=== PATIENT | male | born 1940 | race Two or more races ===

== ENCOUNTER 2017-12-12 08:09 | Emergency (ER) | payer MEDICAID ==
[~2017-12-12] VITALS: Ht 182.9 cm; Wt 91.0 kg
[~2017-12-12 08:09] MED LIST: ACHECK TEST; AMPI250C13 GT; ATOR10TA PO; Aspirin PO; CLOP75TA16 PO; COR3 PO; GABA-531 PO; INSNOV SUBCUT; INSU100I19 SQ; NITR12SP6 TL; SUCR1ORA2 PO; ambien PO
[2017-12-12 11:23] VITALS: BP 129/72
== END 2017-12-12 11:26 | disposition home or self-care (01) ==
LOC: ER 08:55
DX: L97.511 Non-pressure chronic ulcer of other part of right foot limited to breakdown of skin (principal); E11.9 Type 2 diabetes mellitus without complications; I10 Essential (primary) hypertension; I25.10 Atherosclerotic heart disease of native coronary artery without angina pectoris
CPT/HCPCS: 99283

== ENCOUNTER 2019-01-02 13:06 | Inpatient (IN) | payer MEDICAID ==
[~2019-01-02] VITALS: Ht 180.3 cm; Wt 96.2 kg
[~2019-01-02 13:06] MED LIST changes: +AM250 GT; -AMPI250C13 GT; -CLOP75TA16 PO; +CLOP75TA4 PO
[2019-01-02] MEDS ORDERED: METHYLPREDNISOLONE SOD SUCC 125 MG/2 ML VIAL IV STA (13:47)
[2019-01-02] MEDS ORDERED: IPRATROPIUM BROMIDE (0.02%) 0.5MG/2.5ML NEB HHN STA (13:47)
[2019-01-02] MEDS ORDERED: ALBUTEROL (0.083%) 2.5MG/3ML NEB HHN STA (13:47)
[2019-01-02] MEDS ORDERED: ASPIRIN 81MG TABLET PO ONE (14:00)
[2019-01-02] MEDS ORDERED: NITROGLYCERIN 0.4MG TABLET SL SL PRN (14:00)
[2019-01-02 14:38] LABS: BASOPHILS % 1.5 % (0.0-2.0); EOSINOPHILS % 2.8 % (0.0-5.0); HEMATOCRIT. 35.2 % (42.0-52.0); HEMOGLOBIN. 10.6 g/dL (14.0-18.0); LYMPHOCYTES % 33.2 % (20.0-50.0); MEAN CORPUSCULAR HEMOGLOBIN 18.3 pg (28.0-32.0); MEAN CORPUSCULAR VOLUME 60.9 fL (80.0-94.0); MONOCYTES % 6.2 % (2.0-8.0); NEUTROPHILS % 56.3 % (40.0-76.0); RED BLOOD CELL COUNT 5.79 mill/uL (4.7-6.1); RED CELL DISTRIBUTION WIDTH 17.6 % (11.6-14.6)
[2019-01-02 14:45] LABS: CHLORIDE 112 mEq/L (98-107)
[2019-01-02 14:50] LABS: D-DIMER 1.78 mg/L FEU (<0.50); PARTIAL THROMBOPLASTIN TIME 26.4 sec (23.4-31.0); PROTHROMBIN TIME 10.1 sec (9.6-11.0)
[2019-01-02] MEDS ORDERED: SODIUM POLYSTYRENE SULFONATE 15 G/60 ML BOT PO ONE (15:15)
[2019-01-02] MEDS ORDERED: FUROSEMIDE 40MG/4ML VIAL IV ONE (15:15)
[2019-01-02] MEDS ORDERED: SODIUM BICARBONATE 8.4% 1 MEQ/ML 50ML SYR IV ONE (15:15)
[2019-01-02 15:29] LABS: PLATELET ESTIMATE SLIGHTLY DECREASED
[2019-01-02 15:33] LABS: PLATELET 124 x1000/uL (130-400)
[2019-01-02] MEDS ORDERED: ZOLPIDEM TARTRATE 5MG TABLET PO PRN (18:15)
[2019-01-02] MEDS ORDERED: ACETAMINOPHEN 325MG TABLET PO PRN (18:15)
[2019-01-02] MEDS ORDERED: ONDANSETRON HCL 4MG/2ML INJ IV PRN (18:15)
[2019-01-02] MEDS ORDERED: DEXTROSE 50% WATER 50ML SYRINGE IV PRN (18:15)
[2019-01-02 18:50] LABS: LDL CHOLESTEROL 86 mg/dL (5-100)
[2019-01-02 18:52] LABS: HDL CHOLESTEROL 71 mg/dL (40-59)
[2019-01-02 22:00] VITALS: BP_SYST 125; BP_DIAS 125; BP_DIAS 83
[2019-01-02] MEDS ORDERED: ENOXAPARIN 100MG/ML SYR SUBCUT NR (22:48)
[2019-01-02] MEDS: BLOOD SUGAR DIAGNOSTIC STRIP TEST SCH (23:07)
[2019-01-02] MEDS: AMLODIPINE 5MG TABLET PO SCH (23:15)
[2019-01-02] MEDS: INSULIN LISPRO 100 UNITS/ML SUBCUT SCH (23:18)
[2019-01-02] MEDS: INSULIN GLARGINE UD 100 UNITS/ML SYR SUBCUT SCH (23:18)
[2019-01-03] VITALS (10 sets, daily range): BP systolic 124–163; BP diastolic 67–113
[2019-01-03] MEDS: BLOOD SUGAR DIAGNOSTIC STRIP TEST SCH ×4 (05:59→21:07)
[2019-01-03] MEDS: INSULIN LISPRO 100 UNITS/ML SUBCUT SCH ×4 (06:09→21:12)
[2019-01-03 07:21] LABS: PROTHROMBIN TIME 10.7 sec (9.6-11.0)
[2019-01-03 08:30] LABS: BASOPHILS % 0.5 % (0.0-2.0); HEMATOCRIT. 30.5 % (42.0-52.0); HEMOGLOBIN. 9.5 g/dL (14.0-18.0); LYMPHOCYTES % 8.1 % (20.0-50.0); MEAN CORPUSCULAR HEMOGLOBIN 18.6 pg (28.0-32.0); MEAN CORPUSCULAR VOLUME 59.7 fL (80.0-94.0); MONOCYTES % 3.3 % (2.0-8.0); NEUTROPHILS % 88.1 % (40.0-76.0); RED BLOOD CELL COUNT 5.11 mill/uL (4.7-6.1); RED CELL DISTRIBUTION WIDTH 17.2 % (11.6-14.6)
[2019-01-03] MEDS: FUROSEMIDE 40MG/4ML VIAL IVP SCH (09:23)
[2019-01-03] MEDS: NITROGLYCERIN OINT 1GM/INCH UDPKT TD SCH ×4 (09:23→20:59)
[2019-01-03] MEDS: CLOPIDOGREL 75MG TABLET PO SCH (09:24)
[2019-01-03] MEDS: ASPIRIN 81MG EC TABLET PO SCH (09:24)
[2019-01-03] MEDS: AMLODIPINE 5MG TABLET PO SCH ×2 (09:24→21:00)
[2019-01-03] MEDS: INSULIN GLARGINE UD 100 UNITS/ML SYR SUBCUT SCH ×2 (09:25→21:12)
[2019-01-03] MEDS ORDERED: MORPHINE SULFATE 2 MG/ML CPJ (NOT FOR IM USE) IV NR (10:15)
[2019-01-03] MEDS ORDERED: MORPHINE SULFATE 2 MG/ML CPJ (NOT FOR IM USE) IV PRN (10:15)
[2019-01-03 10:16] LABS: PLATELET 124 x1000/uL (130-400)
[2019-01-03 10:17] LABS: MEAN PLATELET VOLUME 9.8 fl (7.4-10.4)
[2019-01-03] MEDS: METHYLPREDNISOLONE SOD SUCC 40 MG/ML VIAL IV SCH ×2 (13:14→20:58)
[2019-01-03 22:55] LABS: CLARITY URINE CLEAR (CLEAR); COLOR URINE YELLOW (YELLOW); KETONES URINE NEGATIVE (NEGATIVE); LEUKOCYTE ESTERASE URINE NEGATIVE (NEGATIVE); NITRITE URINE NEGATIVE (NEGATIVE); OCCULT BLOOD URINE 2+ (NEGATIVE); PH URINE 5.5 (4.5-8.0); PROTEIN URINE 3+ (NEGATIVE); SPECIFIC GRAVITY URINE 1.011 (1.005-1.030); UROBILINOGEN URINE 0.2 E.U./dL (0.2-1.0)
[2019-01-04] VITALS (12 sets, daily range): BP systolic 110–140; BP diastolic 46–77
[2019-01-04] MEDS: IPRATROPIUM/ALBUTEROL 0.5-3(2.5)MG/3ML NEB HHN SCH ×6 (00:17→20:18)
[2019-01-04] MEDS: NITROGLYCERIN OINT 1GM/INCH UDPKT TD SCH ×6 (00:18→22:14)
[2019-01-04] MEDS: ENOXAPARIN 100MG/ML SYR SUBCUT SCH ×2 (00:18→23:30)
[2019-01-04] MEDS: METHYLPREDNISOLONE SOD SUCC 40 MG/ML VIAL IV SCH ×2 (03:34→11:53)
[2019-01-04 05:46] LABS: HEMATOCRIT. 30.4 % (42.0-52.0); HEMOGLOBIN. 9.2 g/dL (14.0-18.0); MEAN CORPUSCULAR HEMOGLOBIN 18.2 pg (28.0-32.0); RED BLOOD CELL COUNT 5.07 mill/uL (4.7-6.1); RED CELL DISTRIBUTION WIDTH 17.1 % (11.6-14.6)
[2019-01-04 05:56] LABS: PHOSPHORUS 4.2 mg/dL (2.5-4.9)
[2019-01-04] MEDS: BLOOD SUGAR DIAGNOSTIC STRIP TEST SCH ×4 (07:39→21:00)
[2019-01-04] MEDS ORDERED: SODIUM POLYSTYRENE SULFONATE 15 G/60 ML BOT PO ONE (08:15)
[2019-01-04 08:25] LABS: PLATELET 116 x1000/uL (130-400)
[2019-01-04 08:28] LABS: NUCLEATED RED BLOOD CELLS 2 /100 WBC
[2019-01-04] MEDS: FUROSEMIDE 40MG/4ML VIAL IVP SCH (08:53)
[2019-01-04] MEDS: ASPIRIN 81MG EC TABLET PO SCH (08:54)
[2019-01-04] MEDS: INSULIN LISPRO 100 UNITS/ML SUBCUT SCH ×4 (08:57→21:00)
[2019-01-04] MEDS ORDERED: AMLODIPINE 5MG TABLET PO SCH (09:00)
[2019-01-04] MEDS: INSULIN GLARGINE UD 100 UNITS/ML SYR SUBCUT SCH ×2 (09:59→22:28)
[2019-01-04] MEDS: CLOPIDOGREL 75MG TABLET PO SCH (10:04)
[2019-01-04 10:05] LABS: BG BASE EXCESS -6.4 mmol/L (-2.0-2.0); BG CARBOXYHEMOGLOBIN 0.3 % (0.5-1.5); BG DEOXYHEMOGLOBIN 3.9 % (0.0-5.0); BG FRACTION INSPIRED OXYGEN 32; BG HCO3 ACT 20.2 mmol/L (22.0-26.0); BG METHEMOGLOBIN 0.2 % (0.0-1.5); BG OXYGEN SATURATION 96.1 % (92.0-98.5); BG OXYHEMOGLOBIN 95.6 % (94.0-97.0); BG PCO2 44.6 mmHg (35.0-45.0); BG PH 7.274 (7.350-7.450); BG PO2 96.7 mmHg (75.0-100.0); BG SAMPLE SITE RIGHT RADIAL; BG TOTAL HEMOGLOBIN 10.7 g/dL (12.0-18.0); BG VENT MODE NASAL CANNULA
[2019-01-04] MEDS: DOCUSATE SODIUM 250MG CAPSULE PO SCH ×2 (10:06→18:30)
[2019-01-04] MEDS ORDERED: SODIUM POLYSTYRENE SULFONATE 15 G/60 ML BOT PO NR (11:00)
[2019-01-04] MEDS ORDERED: MAGNESIUM 2 G PREMIX 50 ML IV NR (11:00)
[2019-01-04] MEDS ORDERED: CARVEDILOL 6.25 MG TABLET PO NR (11:30)
[2019-01-04] MEDS ORDERED: INSULIN LISPRO 100 UNITS/ML SUBCUT NR (16:00)
[2019-01-04] MEDS: CARVEDILOL 6.25 MG TABLET PO SCH (22:15)
[2019-01-05] VITALS (10 sets, daily range): BP systolic 104–151; BP diastolic 40–86
[2019-01-05] MEDS: IPRATROPIUM/ALBUTEROL 0.5-3(2.5)MG/3ML NEB HHN SCH ×6 (04:28→20:22)
[2019-01-05 06:57] LABS: BASOPHILS % 0.2 % (0.0-2.0); EOSINOPHILS % 0.1 % (0.0-5.0); HEMATOCRIT. 29.4 % (42.0-52.0); LYMPHOCYTES % 12.2 % (20.0-50.0); MEAN CORPUSCULAR HEMOGLOBIN 18.5 pg (28.0-32.0); MEAN CORPUSCULAR VOLUME 60.6 fL (80.0-94.0); MONOCYTES % 4.3 % (2.0-8.0); NEUTROPHILS % 83.2 % (40.0-76.0); RED BLOOD CELL COUNT 4.86 mill/uL (4.7-6.1); RED CELL DISTRIBUTION WIDTH 17.1 % (11.6-14.6)
[2019-01-05] MEDS: BLOOD SUGAR DIAGNOSTIC STRIP TEST SCH ×4 (07:30→21:51)
[2019-01-05] MEDS: NITROGLYCERIN OINT 1GM/INCH UDPKT TD SCH ×3 (08:00→13:35)
[2019-01-05] MEDS: INSULIN LISPRO 100 UNITS/ML SUBCUT SCH ×4 (08:00→21:48)
[2019-01-05 08:30] LABS: PLATELET 108 x1000/uL (130-400)
[2019-01-05] MEDS: AMIODARONE HCL 200 MG TABLET PO SCH (08:51)
[2019-01-05] MEDS: CARVEDILOL 6.25 MG TABLET PO SCH ×2 (08:51→21:46)
[2019-01-05] MEDS: AMLODIPINE 2.5MG TABLET PO SCH (08:52)
[2019-01-05] MEDS: DOCUSATE SODIUM 250MG CAPSULE PO SCH ×2 (08:57→17:33)
[2019-01-05] MEDS: CLOPIDOGREL 75MG TABLET PO SCH (08:57)
[2019-01-05] MEDS: ASPIRIN 81MG EC TABLET PO SCH (08:57)
[2019-01-05] MEDS ORDERED: PREDNISONE 20MG TABLET PO SCH (09:00)
[2019-01-05] MEDS: INSULIN GLARGINE UD 100 UNITS/ML SYR SUBCUT SCH ×2 (11:05→21:49)
[2019-01-05] MEDS ORDERED: BUDESONIDE 0.5MG/2ML NEB HHN SCH (16:00)
[2019-01-05] MEDS: APIXABAN 5 MG TABLET PO SCH (17:37)
[2019-01-05] MEDS ORDERED: INSULIN GLARGINE UD 100 UNITS/ML SYR SUBCUT SCH (22:00)
[2019-01-06] VITALS (11 sets, daily range): BP systolic 114–165; BP diastolic 56–93
[2019-01-06] MEDS: IPRATROPIUM/ALBUTEROL 0.5-3(2.5)MG/3ML NEB HHN SCH ×4 (00:29→15:53)
[2019-01-06] MEDS: NITROGLYCERIN OINT 1GM/INCH UDPKT TD SCH ×3 (02:20→13:33)
[2019-01-06 06:16] LABS: PHOSPHORUS 4.6 mg/dL (2.5-4.9)
[2019-01-06 06:22] LABS: HEMOGLOBIN. 9.2 g/dL (14.0-18.0); MEAN CORPUSCULAR HEMOGLOBIN 18.4 pg (28.0-32.0); MEAN CORPUSCULAR VOLUME 59.8 fL (80.0-94.0); RED BLOOD CELL COUNT 5.01 mill/uL (4.7-6.1); RED CELL DISTRIBUTION WIDTH 16.8 % (11.6-14.6)
[2019-01-06] MEDS: BLOOD SUGAR DIAGNOSTIC STRIP TEST SCH ×3 (07:30→17:30)
[2019-01-06] MEDS: INSULIN LISPRO 100 UNITS/ML SUBCUT SCH ×3 (08:00→17:45)
[2019-01-06] MEDS: DOCUSATE SODIUM 250MG CAPSULE PO SCH ×2 (09:12→17:14)
[2019-01-06] MEDS: AMIODARONE HCL 200 MG TABLET PO SCH (09:12)
[2019-01-06] MEDS: APIXABAN 5 MG TABLET PO SCH ×2 (09:12→17:14)
[2019-01-06] MEDS: CARVEDILOL 6.25 MG TABLET PO SCH (09:12)
[2019-01-06] MEDS: AMLODIPINE 2.5MG TABLET PO SCH (09:12)
[2019-01-06] MEDS: INSULIN GLARGINE UD 100 UNITS/ML SYR SUBCUT SCH (09:14)
[2019-01-06 09:59] LABS: PLATELET 99 x1000/uL (130-400)
[2019-01-06 10:01] LABS: PLATELET ESTIMATE SLIGHTLY DECREASED
[2019-01-06] MEDS ORDERED: GLYB5TAB7 MT (14:50)
[2019-01-06] MEDS ORDERED: ASPI-1158 MT (14:50)
[2019-01-06] MEDS ORDERED: FURO-151 MT (14:50)
[2019-01-06] MEDS ORDERED: FAMO20TA8 MT (14:50)
[2019-01-06] MEDS ORDERED: SILV20CR13 TP (14:50)
[2019-01-06] MEDS ORDERED: TRAM50TA3 MT (14:50)
[2019-01-06] MEDS ORDERED: BROM3DRO BOTHEYE (14:50)
[2019-01-06] MEDS ORDERED: INSU100I24 SQ (14:50)
[2019-01-06] MEDS ORDERED: AMI2 PO (14:50)
[2019-01-06] MEDS ORDERED: COR6 MT (14:50)
[2019-01-06] MEDS ORDERED: LOSA25TA26 MT (14:50)
[2019-01-06] MEDS ORDERED: GABA-290 MT (14:50)
[2019-01-06] MEDS ORDERED: HYDR10TA34 MT (14:53)
== END 2019-01-06 19:20 | disposition home health service (06) | DRG 190 ==
LOC: ER 13:06 → 8WST 16:04 → ENRESERV 17:23 → 5EST 01-03 10:24
PROVIDERS: ADMIT Internal Medicine; ATTEND Internal Medicine
DX: I21.4 Non-ST elevation (NSTEMI) myocardial infarction (principal); J96.00 Acute respiratory failure, unspecified whether with hypoxia or hypercapnia; E43 Unspecified severe protein-calorie malnutrition; I50.23 Acute on chronic systolic (congestive) heart failure; D69.6 Thrombocytopenia, unspecified; E11.22 Type 2 diabetes mellitus with diabetic chronic kidney disease; N17.9 Acute kidney failure, unspecified; N18.4 Chronic kidney disease, stage 4 (severe); E11.51 Type 2 diabetes mellitus with diabetic peripheral angiopathy without gangrene; E11.649 Type 2 diabetes mellitus with hypoglycemia without coma; E87.5 Hyperkalemia; D64.9 Anemia, unspecified; I13.0 Hypertensive heart and chronic kidney disease with heart failure and stage 1 through stage 4 chronic kidney disease, or unspecified chronic kidney disease; E87.8 Other disorders of electrolyte and fluid balance, not elsewhere classified; J44.1 Chronic obstructive pulmonary disease with (acute) exacerbation; I49.3 Ventricular premature depolarization; R00.8 Other abnormalities of heart beat; K21.9 Gastro-esophageal reflux disease without esophagitis; D72.823 Leukemoid reaction; T38.0X5A Adverse effect of glucocorticoids and synthetic analogues, initial encounter; E78.5 Hyperlipidemia, unspecified; I25.5 Ischemic cardiomyopathy; I42.0 Dilated cardiomyopathy; I48.0 Paroxysmal atrial fibrillation; Z79.01 Long term (current) use of anticoagulants; Y92.89 Other specified places as the place of occurrence of the external cause; Z79.02 Long term (current) use of antithrombotics/antiplatelets; Z79.4 Long term (current) use of insulin; I25.2 Old myocardial infarction; Z82.49 Family history of ischemic heart disease and other diseases of the circulatory system; Z95.5 Presence of coronary angioplasty implant and graft; Z68.29 Body mass index [BMI] 29.0-29.9, adult
CPT/HCPCS: 36415; 36600; 71045; 76770; 78582; 80048; 80061; 81003; 82375; 82570; 82728; 82805; 82962; 83036; 83540; 83550; 83735; 83880; 84100; 84145; 84156; 84443; 84484; 85379; 93005; 93306; 93970; 94640; 94644; 96374; 96375; 97116; 97162; 97166; 99285; A9558; J1650; J1815; J1940; J2270; J2405; J2920; J2930; J3475; J3490; J7512; J7611; J7620; J7626

== ENCOUNTER 2019-04-26 17:18 | Inpatient (IN) | payer MEDICAID ==
[~2019-04-26] VITALS: Ht 185.4 cm; Wt 97.5 kg
[~2019-04-26 17:18] MED LIST changes: -ACHECK TEST; -AM250 GT; +AMI2 PO; -ATOR10TA PO; -Aspirin PO; +BROM3DRO BOTHEYE; -CLOP75TA4 PO; -COR3 PO; +COR6 MT; +FURO-151 MT; -GABA-531 PO; -INSNOV SUBCUT; -INSU100I19 SQ; -NITR12SP6 TL; -SUCR1ORA2 PO; -ambien PO
[2019-04-26] MEDS ORDERED: SODIUM CHLORIDE 0.9% 1,000 ML IV ONE (17:41)
[2019-04-26 18:32] LABS: CHLORIDE 111 mEq/L (98-107); HEMATOCRIT. 35.6 % (42.0-52.0); HEMOGLOBIN. 10.7 g/dL (14.0-18.0); MEAN CORPUSCULAR HEMOGLOBIN 18.2 pg (28.0-32.0); MEAN CORPUSCULAR VOLUME 60.7 fL (80.0-94.0); MEAN PLATELET VOLUME 10.2 fl (7.4-10.4); PLATELET 130 x1000/uL (130-400); RED BLOOD CELL COUNT 5.86 mill/uL (4.7-6.1); RED CELL DISTRIBUTION WIDTH 16.9 % (11.6-14.6)
[2019-04-26 18:34] LABS: PARTIAL THROMBOPLASTIN TIME 27.5 sec (23.4-31.0); PROTHROMBIN TIME 10.4 sec (9.6-11.0)
[2019-04-26 19:03] LABS: CLARITY URINE TURBID (CLEAR); COLOR URINE RED (YELLOW); KETONES URINE NEGATIVE (NEGATIVE); LEUKOCYTE ESTERASE URINE 3+ (NEGATIVE); NITRITE URINE NEGATIVE (NEGATIVE); OCCULT BLOOD URINE 3+ (NEGATIVE); PH URINE 6.5 (4.5-8.0); PROTEIN URINE 3+ (NEGATIVE); SPECIFIC GRAVITY URINE 1.015 (1.005-1.030); UROBILINOGEN URINE 0.2 E.U./dL (0.2-1.0)
[2019-04-26 19:12] LABS: PLATELET ESTIMATE NORMAL
[2019-04-26] MEDS ORDERED: CEFTRIAXONE 1 G PREMIX 50 ML IV ONE (20:00)
[2019-04-26] MEDS ORDERED: SODIUM POLYSTYRENE SULFONATE 15 G/60 ML BOT PO ONE (22:15)
[2019-04-27 17:15] VITALS: BP 164/73
[2019-04-27 17:49] VITALS: BP 164/73
[2019-04-27 20:00] VITALS: BP 160/57
[2019-04-27] MEDS ORDERED: DEXTROSE 50% WATER 50ML SYRINGE IV PRN (20:00)
[2019-04-27 20:15] VITALS: BP 150/63
[2019-04-27] MEDS: BLOOD SUGAR DIAGNOSTIC STRIP TEST SCH (22:48)
[2019-04-27] MEDS: INSULIN LISPRO 100 UNITS/ML SUBCUT SCH (22:54)
[2019-04-27] MEDS ORDERED: CEFTRIAXONE 1 G PREMIX 50 ML IV SCH (23:00)
[2019-04-27] MEDS: INSULIN GLARGINE UD 100 UNITS/ML SYR SUBCUT SCH (23:11)
[2019-04-28] VITALS: BP 168/79
[2019-04-28 04:00] VITALS: BP 157/63
[2019-04-28] MEDS: BLOOD SUGAR DIAGNOSTIC STRIP TEST SCH ×3 (06:37→18:10)
[2019-04-28] MEDS: INSULIN LISPRO 100 UNITS/ML SUBCUT SCH ×3 (06:38→17:50)
[2019-04-28 06:55] LABS: HEMATOCRIT. 33.1 % (42.0-52.0); HEMOGLOBIN. 9.9 g/dL (14.0-18.0); MEAN CORPUSCULAR HEMOGLOBIN 18.1 pg (28.0-32.0); MEAN CORPUSCULAR VOLUME 60.6 fL (80.0-94.0); RED BLOOD CELL COUNT 5.45 mill/uL (4.7-6.1)
[2019-04-28 08:00] VITALS: BP 166/77
[2019-04-28] MEDS ORDERED: DOCU100T MT (08:41)
[2019-04-28] MEDS ORDERED: GABA-290 MT (08:41)
[2019-04-28] MEDS ORDERED: APIX5TAB PO (08:41)
[2019-04-28] MEDS ORDERED: AMLODIPINE 10MG TABLET PO SCH (09:00)
[2019-04-28] MEDS ORDERED: HYDRALAZINE HCL 50MG TABLET PO SCH (10:00)
[2019-04-28] MEDS: INSULIN GLARGINE UD 100 UNITS/ML SYR SUBCUT SCH (10:24)
[2019-04-28 10:59] LABS: PLATELET ESTIMATE SLIGHTLY DECREASED
[2019-04-28 11:02] LABS: PLATELET 126 x1000/uL (130-400)
[2019-04-28 12:00] VITALS: BP 154/64
[2019-04-28] MEDS ORDERED: LEVO500T2 MT (13:33)
[2019-04-28 14:45] VITALS: BP 154/64
[2019-04-28 16:00] VITALS: BP 141/57
[2019-04-28] MEDS ORDERED: AMLO10TA80 MT (16:30)
== END 2019-04-28 18:07 | disposition home or self-care (01) | DRG 720 ==
LOC: ER 17:18 → EDBEDREQ 20:34 → 6EST 21:32 → EDBEDREQ 21:34 → EDBEDREQTM 21:34
PROVIDERS: ADMIT Internal Medicine; ATTEND Internal Medicine
DX: A41.9 Sepsis, unspecified organism (principal); E43 Unspecified severe protein-calorie malnutrition; N18.4 Chronic kidney disease, stage 4 (severe); E11.22 Type 2 diabetes mellitus with diabetic chronic kidney disease; N17.9 Acute kidney failure, unspecified; I48.91 Unspecified atrial fibrillation; E87.5 Hyperkalemia; I42.9 Cardiomyopathy, unspecified; E11.51 Type 2 diabetes mellitus with diabetic peripheral angiopathy without gangrene; I13.0 Hypertensive heart and chronic kidney disease with heart failure and stage 1 through stage 4 chronic kidney disease, or unspecified chronic kidney disease; I50.22 Chronic systolic (congestive) heart failure; E87.8 Other disorders of electrolyte and fluid balance, not elsewhere classified; I25.10 Atherosclerotic heart disease of native coronary artery without angina pectoris; N39.0 Urinary tract infection, site not specified; D64.9 Anemia, unspecified; Z95.5 Presence of coronary angioplasty implant and graft; Z79.899 Other long term (current) drug therapy; Z79.01 Long term (current) use of anticoagulants; Z68.28 Body mass index [BMI] 28.0-28.9, adult
CPT/HCPCS: 36415; 74176; 76770; 80048; 81003; 82962; 83605; 84132; 96365; 96366; 99284; J0696; J1815; J7030

== ENCOUNTER 2019-07-23 12:11 | Inpatient (IN) | payer MEDICAID ==
[~2019-07-23] VITALS: Ht 185.4 cm; Wt 90.7 kg
[~2019-07-23 12:11] MED LIST changes: +AMLO10TA80 MT; +APIX5TAB PO; +DOCU100T MT; -FURO-151 MT; +GABA-290 MT; +LEVO500T2 MT
[2019-07-23 14:30] LABS: HEMOGLOBIN. 11.1 g/dL (14.0-18.0); MEAN CORPUSCULAR HEMOGLOBIN 18.6 pg (28.0-32.0); MEAN CORPUSCULAR VOLUME 62.1 fL (80.0-94.0); MEAN PLATELET VOLUME 10.2 fl (7.4-10.4); PLATELET 138 x1000/uL (130-400); RED BLOOD CELL COUNT 5.95 mill/uL (4.7-6.1); RED CELL DISTRIBUTION WIDTH 18.9 % (11.6-14.6)
[2019-07-23 14:37] LABS: CHLORIDE 112 mEq/L (98-107)
[2019-07-23 14:38] LABS: INR 0.9; PROTHROMBIN TIME 9.6 sec (9.6-11.0)
[2019-07-23 15:14] LABS: CLARITY URINE CLEAR (CLEAR); COLOR URINE YELLOW (YELLOW); KETONES URINE NEGATIVE (NEGATIVE); LEUKOCYTE ESTERASE URINE 1+ (NEGATIVE); NITRITE URINE NEGATIVE (NEGATIVE); OCCULT BLOOD URINE 2+ (NEGATIVE); PH URINE 5.5 (4.5-8.0); PROTEIN URINE 3+ (NEGATIVE); UROBILINOGEN URINE 0.2 E.U./dL (0.2-1.0)
[2019-07-23] MEDS ORDERED: DEXTROSE 50% WATER 50ML SYRINGE IV ONE ×4 (15:30→21:28)
[2019-07-23] MEDS ORDERED: FUROSEMIDE 100MG/10ML VIAL IV ONE (15:30)
[2019-07-23] MEDS ORDERED: SODIUM BICARBONATE 8.4% 1 MEQ/ML 50ML SYR IV ONE ×2 (15:30→22:37)
[2019-07-23] MEDS ORDERED: INSULIN REGULAR (HUMULIN R) 300UNITS/3ML IV ONE (15:30)
[2019-07-23] MEDS ORDERED: SODIUM POLYSTYRENE SULFONATE 15 G/60 ML BOT PO ONE (15:30)
[2019-07-23 16:24] LABS: PLATELET ESTIMATE NORMAL
[2019-07-23] MEDS ORDERED: ONDANSETRON HCL 4MG/2ML INJ IV PRN ×2 (18:45→22:30)
[2019-07-23] MEDS ORDERED: GUAIFENESIN 200MG/10ML SUGAR FREE UDC PO PRN (18:45)
[2019-07-23] MEDS ORDERED: IPRATROPIUM/ALBUTEROL 0.5-3(2.5)MG/3ML NEB HHN PRN (18:45)
[2019-07-23] MEDS ORDERED: ACETAMINOPHEN 325MG TABLET PO PRN ×2 (18:45→22:30)
[2019-07-23] MEDS ORDERED: LORAZEPAM 0.5MG TABLET PO PRN (18:45)
[2019-07-23] MEDS ORDERED: CLONIDINE 0.1MG TABLET PO PRN (18:45)
[2019-07-23] MEDS ORDERED: HYDROCODONE/ACETAMINOPHEN 5/325MG TABLET PO PRN ×2 (18:45→22:30)
[2019-07-23] MEDS ORDERED: LORAZEPAM 2MG/ML CPJ IV PRN (22:30)
[2019-07-23] MEDS ORDERED: IPRATROPIUM/ALBUTEROL 0.5-3(2.5)MG/3ML NEB NEB PRN (22:30)
[2019-07-23] MEDS ORDERED: CALCIUM CHLORIDE 1GM/10ML SYR IV ONE (22:36)
[2019-07-23 23:15] LABS: *AMPHETAMINES SCREEN URINE NEGATIVE (NEGATIVE); *BARBITURATES SCREEN URINE NEGATIVE (NEGATIVE); *BENZODIAZEPINES SCREEN URINE NEGATIVE (NEGATIVE)
[2019-07-23 23:16] LABS: CHLORIDE 117 mEq/L (98-107)
[2019-07-23 23:16] LABS: *COCAINE SCREEN URINE NEGATIVE (NEGATIVE); CANNABINOID URINE SCREEN NEGATIVE (NEGATIVE); METHADONE URINE SCREEN NEGATIVE (NEGATIVE); PHENCYCLIDINE URINE SCREEN NEGATIVE (NEGATIVE)
[2019-07-23 23:23] LABS: HEMATOCRIT. 35.3 % (42.0-52.0); HEMOGLOBIN. 10.8 g/dL (14.0-18.0); MEAN CORPUSCULAR HEMOGLOBIN 18.6 pg (28.0-32.0); MEAN CORPUSCULAR VOLUME 60.9 fL (80.0-94.0); MEAN PLATELET VOLUME 10.1 fl (7.4-10.4); PLATELET 127 x1000/uL (130-400); RED CELL DISTRIBUTION WIDTH 18.2 % (11.6-14.6)
[2019-07-24] VITALS (32 sets, daily range): BP systolic 94–195; BP diastolic 48–106
[2019-07-24 00:41] LABS: PLATELET ESTIMATE NORMAL
[2019-07-24 01:00] LABS: PHOSPHORUS 3.7 mg/dL (2.5-4.9)
[2019-07-24] MEDS: DEXTROSE 50% WATER 50ML SYRINGE IV PRN ×3 (01:27→06:08)
[2019-07-24] MEDS ORDERED: APIX5TAB PO (01:31)
[2019-07-24] MEDS ORDERED: FURO20TA4 PO (01:31)
[2019-07-24] MEDS ORDERED: DOCU-138 MT (01:33)
[2019-07-24] MEDS ORDERED: FLUT1AER4 INH (01:37)
[2019-07-24] MEDS ORDERED: FLUT1BLS9 IH (01:37)
[2019-07-24] MEDS: BLOOD SUGAR DIAGNOSTIC STRIP TEST SCH ×7 (02:41→18:00)
[2019-07-24 05:46] LABS: BASOPHILS % 0.7 % (0.0-2.0); EOSINOPHILS % 1.2 % (0.0-5.0); HEMATOCRIT. 31.8 % (42.0-52.0); HEMOGLOBIN. 9.7 g/dL (14.0-18.0); LYMPHOCYTES % 18.9 % (20.0-50.0); MEAN CORPUSCULAR HEMOGLOBIN 18.5 pg (28.0-32.0); MEAN CORPUSCULAR VOLUME 60.8 fL (80.0-94.0); MEAN PLATELET VOLUME 9.4 fl (7.4-10.4); MONOCYTES % 6.5 % (2.0-8.0); NEUTROPHILS % 72.7 % (40.0-76.0); PLATELET 131 x1000/uL (130-400); RED BLOOD CELL COUNT 5.23 mill/uL (4.7-6.1); RED CELL DISTRIBUTION WIDTH 18.2 % (11.6-14.6)
[2019-07-24 06:00] LABS: PHOSPHORUS 3.3 mg/dL (2.5-4.9)
[2019-07-24 06:15] LABS: HEPATITIS B SURFACE ANTIGEN NEGATIVE
[2019-07-24 06:45] LABS: HEPATITIS A AB IGM NEGATIVE (NEGATIVE)
[2019-07-24] MEDS ORDERED: BLOOD SUGAR DIAGNOSTIC STRIP TEST SCH (07:50)
[2019-07-24] MEDS: FUROSEMIDE 40MG/4ML VIAL IV SCH (08:07)
[2019-07-24] MEDS: AMLODIPINE 10MG TABLET PO SCH (08:08)
[2019-07-24] MEDS: ENOXAPARIN 30MG/0.3ML SYR SUBCUT SCH (08:09)
[2019-07-24] MEDS: INSULIN LISPRO 100 UNITS/ML SUBCUT SCH ×4 (08:09→21:00)
[2019-07-24] MEDS: DEXT 10% WATER 1,000 ML IV SCH ×2 (09:04→22:58)
[2019-07-24] MEDS ORDERED: LIDOCAINE HCL 1% 20ML VIAL (Pyxis) INJ ONE (09:34)
[2019-07-25] VITALS (22 sets, daily range): BP systolic 106–163; BP diastolic 49–115
[2019-07-25] MEDS: BLOOD SUGAR DIAGNOSTIC STRIP TEST SCH ×8 (00:10→14:00)
[2019-07-25] MEDS: DEXTROSE 50% WATER 50ML SYRINGE IV PRN (04:13)
[2019-07-25 06:05] LABS: PHOSPHORUS 3.1 mg/dL (2.5-4.9)
[2019-07-25 06:23] LABS: BASOPHILS % 0.8 % (0.0-2.0); HEMATOCRIT. 32.6 % (42.0-52.0); HEMOGLOBIN. 9.9 g/dL (14.0-18.0); LYMPHOCYTES % 24.5 % (20.0-50.0); MEAN CORPUSCULAR HEMOGLOBIN 18.4 pg (28.0-32.0); MEAN CORPUSCULAR VOLUME 60.4 fL (80.0-94.0); MONOCYTES % 7.3 % (2.0-8.0); NEUTROPHILS % 64.4 % (40.0-76.0); RED CELL DISTRIBUTION WIDTH 17.3 % (11.6-14.6)
[2019-07-25] MEDS: FUROSEMIDE 40MG/4ML VIAL IV SCH (08:07)
[2019-07-25] MEDS: ENOXAPARIN 30MG/0.3ML SYR SUBCUT SCH (08:07)
[2019-07-25] MEDS: AMLODIPINE 10MG TABLET PO SCH (08:07)
[2019-07-25] MEDS: INSULIN LISPRO 100 UNITS/ML SUBCUT SCH ×3 (08:08→20:17)
[2019-07-25 09:10] LABS: MEAN PLATELET VOLUME 9.5 fl (7.4-10.4); PLATELET 120 x1000/uL (130-400)
[2019-07-25] MEDS: DEXT 10% WATER 1,000 ML IV SCH (11:21)
[2019-07-25] MEDS: MAGNESIUM OXIDE 400MG TABLET PO SCH (13:04)
[2019-07-26] VITALS (13 sets, daily range): BP systolic 114–152; BP diastolic 62–79
[2019-07-26] MEDS: BLOOD SUGAR DIAGNOSTIC STRIP TEST SCH ×8 (00:18→12:36)
[2019-07-26 05:50] LABS: CHLORIDE 108 mEq/L (98-107)
[2019-07-26 05:52] LABS: EOSINOPHILS % 3.3 % (0.0-5.0); HEMATOCRIT. 34.3 % (42.0-52.0); HEMOGLOBIN. 10.6 g/dL (14.0-18.0); LYMPHOCYTES % 26.8 % (20.0-50.0); MEAN CORPUSCULAR HEMOGLOBIN 18.6 pg (28.0-32.0); MEAN CORPUSCULAR VOLUME 59.8 fL (80.0-94.0); MEAN PLATELET VOLUME 9.9 fl (7.4-10.4); MONOCYTES % 8.5 % (2.0-8.0); NEUTROPHILS % 60.4 % (40.0-76.0); PLATELET 133 x1000/uL (130-400); RED BLOOD CELL COUNT 5.73 mill/uL (4.7-6.1); RED CELL DISTRIBUTION WIDTH 17.6 % (11.6-14.6)
[2019-07-26] MEDS: INSULIN LISPRO 100 UNITS/ML SUBCUT SCH ×2 (07:54→13:00)
[2019-07-26] MEDS: ENOXAPARIN 30MG/0.3ML SYR SUBCUT SCH (08:33)
[2019-07-26] MEDS: MAGNESIUM OXIDE 400MG TABLET PO SCH (08:33)
[2019-07-26] MEDS: AMLODIPINE 10MG TABLET PO SCH (08:33)
[2019-07-26] MEDS: FUROSEMIDE 40MG/4ML VIAL IV SCH (08:33)
[2019-07-26] MEDS: DEXT 10% WATER 1,000 ML IV SCH (08:35)
[2019-07-26] MEDS ORDERED: DEXTROSE 5% WATER 1,000 ML IV SCH (10:15)
[2019-07-26 20:37] LABS: OPIATES URINE SCREEN NEGATIVE (NEGATIVE)
== END 2019-07-26 15:15 | disposition left against medical advice (07) | DRG 469 ==
LOC: ER 12:11 → CVICU 17:35 → EDBEDREQ 17:37 → EDBEDREQTM 17:37 → EDBEDREQ 19:39 → EDBEDREQTM 22:36 → EDBEDREQSVC 22:36 → ENRESERV 22:44
PROVIDERS: ADMIT Internal Medicine; ATTEND Internal Medicine
PROC: 02HV33Z Insertion of Infusion Device into Superior Vena Cava, Percutaneous Approach (ICD-10-PCS; principal; 2019-07-24)
PROC: B548ZZA Ultrasonography of Superior Vena Cava, Guidance (ICD-10-PCS; 2019-07-24)
DX: N17.9 Acute kidney failure, unspecified (principal); I13.2 Hypertensive heart and chronic kidney disease with heart failure and with stage 5 chronic kidney disease, or end stage renal disease; I47.2 Ventricular tachycardia; D69.6 Thrombocytopenia, unspecified; D68.59 Other primary thrombophilia; E11.22 Type 2 diabetes mellitus with diabetic chronic kidney disease; E11.51 Type 2 diabetes mellitus with diabetic peripheral angiopathy without gangrene; E87.5 Hyperkalemia; E11.649 Type 2 diabetes mellitus with hypoglycemia without coma; E44.1 Mild protein-calorie malnutrition; I42.9 Cardiomyopathy, unspecified; E87.8 Other disorders of electrolyte and fluid balance, not elsewhere classified; I50.22 Chronic systolic (congestive) heart failure; N39.0 Urinary tract infection, site not specified; N18.6 End stage renal disease; D63.8 Anemia in other chronic diseases classified elsewhere; N28.1 Cyst of kidney, acquired; I25.10 Atherosclerotic heart disease of native coronary artery without angina pectoris; T46.2X5A Adverse effect of other antidysrhythmic drugs, initial encounter; I25.2 Old myocardial infarction; Z79.01 Long term (current) use of anticoagulants; Z79.4 Long term (current) use of insulin; Z95.5 Presence of coronary angioplasty implant and graft; Z86.73 Personal history of transient ischemic attack (TIA), and cerebral infarction without residual deficits; Z86.711 Personal history of pulmonary embolism; Z91.15 Patient's noncompliance with renal dialysis; Z59.0 Homelessness; Z82.3 Family history of stroke; Z82.49 Family history of ischemic heart disease and other diseases of the circulatory system; Z99.2 Dependence on renal dialysis; Z89.422 Acquired absence of other left toe(s); Z68.26 Body mass index [BMI] 26.0-26.9, adult; Y92.89 Other specified places as the place of occurrence of the external cause; Z79.899 Other long term (current) drug therapy
CPT/HCPCS: 36415; 71045; 76770; 76937; 80048; 80053; 80305; 81003; 82533; 82962; 83036; 83605; 83735; 83970; 84100; 84443; 84484; 85025; 86705; 86709; 86803; 87340; 93005; 93306; 99291; C1725; C1769; J1650; J1815; J1940; J2060; J3490

== ENCOUNTER 2019-09-18 14:03 | Inpatient (IN) | payer MEDICAID ==
[~2019-09-18] VITALS: Ht 175.3 cm; Wt 95.7 kg
[~2019-09-18 14:03] MED LIST changes: +DOCU-138 MT; +FLUT1AER4 INH; +FLUT1BLS9 IH; +FURO20TA4 PO
[2019-09-18 14:40] LABS: CHLORIDE 112 mEq/L (98-107)
[2019-09-18 14:42] LABS: HEMATOCRIT. 34.3 % (42.0-52.0); HEMOGLOBIN. 10.5 g/dL (14.0-18.0); MEAN CORPUSCULAR HEMOGLOBIN 18.9 pg (28.0-32.0); MEAN CORPUSCULAR VOLUME 61.7 fL (80.0-94.0); RED BLOOD CELL COUNT 5.55 mill/uL (4.7-6.1); RED CELL DISTRIBUTION WIDTH 17.7 % (11.6-14.6)
[2019-09-18 14:45] LABS: PARTIAL THROMBOPLASTIN TIME 31.4 sec (23.4-31.0); PROTHROMBIN TIME 11.1 sec (9.6-11.0)
[2019-09-18] MEDS ORDERED: SODIUM CHLORIDE 0.9% 1,000 ML IV ONE (14:45)
[2019-09-18] MEDS ORDERED: CALCIUM GLUCONATE 1,000 MG in DEXTROSE 5% WATER 50 ML IV ONE (14:45)
[2019-09-18] MEDS ORDERED: SODIUM BICARBONATE 8.4% 1 MEQ/ML 50ML SYR IV ONE (14:45)
[2019-09-18] MEDS ORDERED: SODIUM CHLORIDE 0.9% 1000ML BAG (SEPSIS BOLUS) IV ONE (15:00)
[2019-09-18] MEDS ORDERED: LEVOFLOXACIN 750MG PREMIX 150 ML IV ONE (15:00)
[2019-09-18 15:12] LABS: PLATELET ESTIMATE NORMAL
[2019-09-18 15:49] LABS: MEAN PLATELET VOLUME 9.3 fl (7.4-10.4); PLATELET 142 x1000/uL (130-400)
[2019-09-18 16:35] LABS: CLARITY URINE CLEAR (CLEAR); COLOR URINE YELLOW (YELLOW); KETONES URINE NEGATIVE (NEGATIVE); LEUKOCYTE ESTERASE URINE TRACE (NEGATIVE); NITRITE URINE NEGATIVE (NEGATIVE); OCCULT BLOOD URINE 3+ (NEGATIVE); PROTEIN URINE 3+ (NEGATIVE); SPECIFIC GRAVITY URINE 1.015 (1.005-1.030); UROBILINOGEN URINE 0.2 E.U./dL (0.2-1.0)
[2019-09-18] MEDS ORDERED: ASPIRIN 325MG EC TABLET PO ONE (18:00)
[2019-09-18] MEDS ORDERED: LORAZEPAM 0.5MG TABLET PO PRN (21:00)
[2019-09-18] MEDS ORDERED: ONDANSETRON HCL 4MG/2ML INJ IV PRN (21:00)
[2019-09-18] MEDS ORDERED: DOCUSATE SODIUM 100MG CAPSULE PO PRN (21:00)
[2019-09-18] MEDS ORDERED: IPRATROPIUM/ALBUTEROL 0.5-3(2.5)MG/3ML NEB HHN PRN (21:00)
[2019-09-18] MEDS ORDERED: CLONIDINE 0.1MG TABLET PO PRN (21:00)
[2019-09-18] MEDS ORDERED: ACETAMINOPHEN 325MG TABLET PO PRN (21:00)
[2019-09-18] MEDS ORDERED: DEXTROSE 50% WATER 50ML SYRINGE IV ONE (23:31)
[2019-09-19 08:56] LABS: BASOPHILS % 0.5 % (0.0-2.0); EOSINOPHILS % 1.1 % (0.0-5.0); HEMATOCRIT. 28.9 % (42.0-52.0); HEMOGLOBIN. 8.8 g/dL (14.0-18.0); LYMPHOCYTES % 16.7 % (20.0-50.0); MEAN CORPUSCULAR HEMOGLOBIN 18.9 pg (28.0-32.0); MEAN CORPUSCULAR VOLUME 62.4 fL (80.0-94.0); MONOCYTES % 8.6 % (2.0-8.0); NEUTROPHILS % 73.1 % (40.0-76.0); RED BLOOD CELL COUNT 4.64 mill/uL (4.7-6.1); RED CELL DISTRIBUTION WIDTH 17.7 % (11.6-14.6)
[2019-09-19 09:29] LABS: PLATELET 123 x1000/uL (130-400)
[2019-09-19 09:33] LABS: PLATELET ESTIMATE SLIGHTLY DECREASED
[2019-09-19] MEDS ORDERED: EPOETIN ALFA 10000UNITS/ML VIAL SUBCUT NR (13:00)
[2019-09-19] MEDS: DEXTROSE 5% WATER 1,000 ML IV SCH (15:29)
[2019-09-19] MEDS ORDERED: CEFTRIAXONE 1 G PREMIX 50 ML IV NR (16:15)
[2019-09-19] MEDS ORDERED: FERROUS SULFATE 325MG TABLET PO NR (16:30)
[2019-09-19] MEDS ORDERED: APIXABAN 5 MG TABLET PO NR (16:30)
[2019-09-19 20:00] VITALS: BP 130/70
[2019-09-19] MEDS: ATORVASTATIN CALCIUM 20MG TABLET PO SCH (21:49)
[2019-09-19 22:30] VITALS: BP 143/68
[2019-09-19] MEDS ORDERED: DEXTROSE 50% WATER 50ML SYRINGE IV PRN (23:00)
[2019-09-19] MEDS: BLOOD SUGAR DIAGNOSTIC STRIP TEST SCH (23:53)
[2019-09-20] VITALS: BP 130/59
[2019-09-20] MEDS: BLOOD SUGAR DIAGNOSTIC STRIP TEST SCH ×10 (02:06→20:00)
[2019-09-20 04:00] VITALS: BP 133/46
[2019-09-20] MEDS ORDERED: BLOOD SUGAR DIAGNOSTIC STRIP TEST SCH (06:45)
[2019-09-20] MEDS: DOCUSATE SODIUM 250MG CAPSULE PO SCH (09:00)
[2019-09-20] MEDS ORDERED: APIXABAN 5 MG TABLET PO SCH (09:00)
[2019-09-20 12:00] LABS: BASOPHILS % 0.8 % (0.0-2.0); EOSINOPHILS % 2.1 % (0.0-5.0); HEMATOCRIT. 32.5 % (42.0-52.0); HEMOGLOBIN. 9.6 g/dL (14.0-18.0); LYMPHOCYTES % 27.1 % (20.0-50.0); MEAN CORPUSCULAR HEMOGLOBIN 18.5 pg (28.0-32.0); MEAN CORPUSCULAR VOLUME 63.1 fL (80.0-94.0); MONOCYTES % 6.2 % (2.0-8.0); NEUTROPHILS % 63.8 % (40.0-76.0); PLATELET 115 x1000/uL (130-400); RED BLOOD CELL COUNT 5.15 mill/uL (4.7-6.1); RED CELL DISTRIBUTION WIDTH 17.8 % (11.6-14.6)
[2019-09-20 12:05] VITALS: BP 144/65
[2019-09-20 12:05] LABS: INR 1.1; PARTIAL THROMBOPLASTIN TIME 30.8 sec (23.4-31.0); PROTHROMBIN TIME 11.5 sec (9.6-11.0)
[2019-09-20] MEDS: DEXTROSE 5% WATER 1,000 ML IV SCH (13:22)
[2019-09-20] MEDS: FERROUS SULFATE 325MG TABLET PO SCH ×2 (15:10→17:50)
[2019-09-20] MEDS: CEFTRIAXONE 1 G PREMIX 50 ML IV SCH (15:51)
[2019-09-20] MEDS ORDERED: CEFTRIAXONE 1 G PREMIX 50 ML IV SCH (16:00)
[2019-09-20 16:09] VITALS: BP 139/60
[2019-09-20] MEDS ORDERED: DEXTROSE 50% WATER 50ML SYRINGE IV PRN (19:15)
[2019-09-20 20:11] VITALS: BP 147/68
[2019-09-20] MEDS: INSULIN LISPRO 100 UNITS/ML SUBCUT SCH (21:00)
[2019-09-20] MEDS: ATORVASTATIN CALCIUM 20MG TABLET PO SCH (21:50)
[2019-09-21] VITALS (18 sets, daily range): BP systolic 124–173; BP diastolic 63–92
[2019-09-21 06:09] LABS: BASOPHILS % 1.2 % (0.0-2.0); EOSINOPHILS % 3.6 % (0.0-5.0); HEMATOCRIT. 29.9 % (42.0-52.0); LYMPHOCYTES % 22.2 % (20.0-50.0); MEAN CORPUSCULAR HEMOGLOBIN 18.9 pg (28.0-32.0); MEAN CORPUSCULAR VOLUME 62.5 fL (80.0-94.0); MONOCYTES % 8.9 % (2.0-8.0); NEUTROPHILS % 64.1 % (40.0-76.0); RED BLOOD CELL COUNT 4.79 mill/uL (4.7-6.1); RED CELL DISTRIBUTION WIDTH 17.5 % (11.6-14.6)
[2019-09-21] MEDS: INSULIN LISPRO 100 UNITS/ML SUBCUT SCH ×4 (07:50→21:00)
[2019-09-21] MEDS: BLOOD SUGAR DIAGNOSTIC STRIP TEST SCH ×5 (08:00→20:00)
[2019-09-21] MEDS: DOCUSATE SODIUM 250MG CAPSULE PO SCH (09:05)
[2019-09-21] MEDS: FERROUS SULFATE 325MG TABLET PO SCH ×2 (09:05→18:58)
[2019-09-21] MEDS ORDERED: SODIUM BICARBONATE 4% (2.4MEQ) 5ML VIAL IV ONE (09:36)
[2019-09-21] MEDS ORDERED: LIDOCAINE HCL 1% 20ML VIAL (Pyxis) INJ ONE (09:36)
[2019-09-21] MEDS ORDERED: HEPARIN 1000 UNITS/ML 10ML ONE (09:36)
[2019-09-21] MEDS ORDERED: FENTANYL CITRATE/PF 50MCG/ML 2ML VIAL ONE (10:06)
[2019-09-21 10:12] LABS: PLATELET 121 x1000/uL (130-400)
[2019-09-21] MEDS ORDERED: FENTANYL CITRATE/PF 50MCG/ML 2ML VIAL IV ONE (11:00)
[2019-09-21] MEDS: SODIUM POLYSTYRENE SULFONATE 15 G/60 ML BOT PO NR ×2 (12:00→13:11)
[2019-09-21] MEDS: AMLODIPINE 5MG TABLET PO SCH ×2 (13:12→22:29)
[2019-09-21] MEDS: HYDRALAZINE HCL 50MG TABLET PO SCH ×2 (13:13→22:28)
[2019-09-21] MEDS: CEFTRIAXONE 1 G PREMIX 50 ML IV SCH (14:49)
[2019-09-21 16:55] LABS: HEPATITIS B SURFACE ANTIGEN NEGATIVE
[2019-09-21 17:25] LABS: HEPATITIS A AB IGM NEGATIVE (NEGATIVE)
[2019-09-21] MEDS ORDERED: EPOETIN ALFA 10000UNITS/ML VIAL SUBCUT NR (21:00)
[2019-09-21] MEDS: ATORVASTATIN CALCIUM 20MG TABLET PO SCH (22:28)
[2019-09-22] VITALS: BP 143/66
[2019-09-22] MEDS: BLOOD SUGAR DIAGNOSTIC STRIP TEST SCH ×7 (00:48→23:30)
[2019-09-22 04:00] VITALS: BP 142/74
[2019-09-22 06:39] LABS: HEMATOCRIT. 34.8 % (42.0-52.0); HEMOGLOBIN. 10.6 g/dL (14.0-18.0); MEAN CORPUSCULAR HEMOGLOBIN 18.8 pg (28.0-32.0); MEAN CORPUSCULAR VOLUME 61.8 fL (80.0-94.0); RED BLOOD CELL COUNT 5.63 mill/uL (4.7-6.1); RED CELL DISTRIBUTION WIDTH 17.2 % (11.6-14.6)
[2019-09-22] MEDS: INSULIN LISPRO 100 UNITS/ML SUBCUT SCH ×4 (07:46→20:40)
[2019-09-22] MEDS: HYDRALAZINE HCL 50MG TABLET PO SCH ×2 (08:45→20:40)
[2019-09-22] MEDS: AMLODIPINE 5MG TABLET PO SCH ×2 (08:46→20:40)
[2019-09-22] MEDS: DOCUSATE SODIUM 250MG CAPSULE PO SCH (09:09)
[2019-09-22] MEDS: FERROUS SULFATE 325MG TABLET PO SCH ×2 (09:09→17:00)
[2019-09-22 10:34] LABS: PLATELET 107 x1000/uL (130-400)
[2019-09-22 10:43] LABS: PLATELET ESTIMATE NORMAL
[2019-09-22] MEDS: CEFTRIAXONE 1 G PREMIX 50 ML IV SCH (14:00)
[2019-09-22] MEDS ORDERED: HYDR-4135 PO (14:21)
[2019-09-22] MEDS ORDERED: FERR325T23 PO (14:21)
[2019-09-22] MEDS ORDERED: AMLO5TAB88 PO (14:21)
[2019-09-22] MEDS ORDERED: ATOR20TA PO (14:21)
[2019-09-22 20:00] VITALS: BP 127/63
[2019-09-22] MEDS: ATORVASTATIN CALCIUM 20MG TABLET PO SCH (20:40)
[2019-09-23] MEDS: BLOOD SUGAR DIAGNOSTIC STRIP TEST SCH ×2 (03:54→08:00)
[2019-09-23] MEDS: FERROUS SULFATE 325MG TABLET PO SCH (07:50)
[2019-09-23] MEDS: INSULIN LISPRO 100 UNITS/ML SUBCUT SCH (07:50)
[2019-09-23] MEDS: DOCUSATE SODIUM 250MG CAPSULE PO SCH (08:11)
[2019-09-23] MEDS: AMLODIPINE 5MG TABLET PO SCH (08:11)
[2019-09-23] MEDS: HYDRALAZINE HCL 50MG TABLET PO SCH (08:11)
[2019-09-23] MEDS ORDERED: CEFTRIAXONE 1,000 MG in DEXTROSE 5% WATER 50 ML IV SCH (14:00)
== END 2019-09-23 10:25 | disposition home or self-care (01) | DRG 469 ==
LOC: ER 14:09 → ENRESERV 23:01 → CANRESERV 23:01 → EDBEDREQ 09-19 12:25 → 5WST 09-19 16:49 → ENRESERV 09-19 16:57 → 6WST 09-19 23:12
PROVIDERS: ADMIT Internal Medicine; ATTEND Internal Medicine
PROC: 0JH63XZ Insertion of Tunneled Vascular Access Device into Chest Subcutaneous Tissue and Fascia, Percutaneous Approach (ICD-10-PCS; principal; 2019-09-21)
PROC: 02H633Z Insertion of Infusion Device into Right Atrium, Percutaneous Approach (ICD-10-PCS; 2019-09-21)
PROC: B518ZZA Fluoroscopy of Superior Vena Cava, Guidance (ICD-10-PCS; 2019-09-21)
PROC: B548ZZA Ultrasonography of Superior Vena Cava, Guidance (ICD-10-PCS; 2019-09-21)
PROC: 5A1D70Z Performance of Urinary Filtration, Intermittent, Less than 6 Hours Per Day (ICD-10-PCS; 2019-09-22)
DX: N17.9 Acute kidney failure, unspecified (principal); E43 Unspecified severe protein-calorie malnutrition; I13.2 Hypertensive heart and chronic kidney disease with heart failure and with stage 5 chronic kidney disease, or end stage renal disease; G92 Toxic encephalopathy; J18.9 Pneumonia, unspecified organism; D68.59 Other primary thrombophilia; D69.6 Thrombocytopenia, unspecified; E11.22 Type 2 diabetes mellitus with diabetic chronic kidney disease; E11.649 Type 2 diabetes mellitus with hypoglycemia without coma; I25.5 Ischemic cardiomyopathy; I25.10 Atherosclerotic heart disease of native coronary artery without angina pectoris; I50.23 Acute on chronic systolic (congestive) heart failure; E87.5 Hyperkalemia; E87.8 Other disorders of electrolyte and fluid balance, not elsewhere classified; N18.6 End stage renal disease; E78.5 Hyperlipidemia, unspecified; R00.1 Bradycardia, unspecified; D63.8 Anemia in other chronic diseases classified elsewhere; R55 Syncope and collapse; N39.0 Urinary tract infection, site not specified; D50.9 Iron deficiency anemia, unspecified; E11.51 Type 2 diabetes mellitus with diabetic peripheral angiopathy without gangrene; D72.821 Monocytosis (symptomatic); Z86.73 Personal history of transient ischemic attack (TIA), and cerebral infarction without residual deficits; I25.2 Old myocardial infarction; Z95.5 Presence of coronary angioplasty implant and graft; Z68.31 Body mass index [BMI] 31.0-31.9, adult; Z99.2 Dependence on renal dialysis; Z79.899 Other long term (current) drug therapy; Z20.828 Contact with and (suspected) exposure to other viral communicable diseases
CPT/HCPCS: 36415; 36558; 71045; 71250; 76937; 77001; 80048; 80053; 81003; 82533; 82962; 83036; 83605; 83880; 83970; 84100; 84145; 84484; 85025; 86705; 86709; 86803; 87340; 87635; 93005; 99152; 99153; 99291; C1725; J0610; J0696; J0885; J1644; J1815; J1956; J3010; J3490; J7030; J7060; J7070; G0500; U0003-CS

== ENCOUNTER 2019-09-27 15:18 | Inpatient (IN) | payer MEDICAID ==
[~2019-09-27] VITALS: Ht 175.3 cm; Wt 91.7 kg
[~2019-09-27 15:18] MED LIST changes: -AMLO10TA80 MT; +AMLO5TAB88 PO; +ATOR20TA PO; +FERR325T23 PO; +HYDR-4135 PO; -LEVO500T2 MT
[2019-09-27 17:19] LABS: EOSINOPHILS % 3.4 % (0.0-5.0); HEMATOCRIT. 34.4 % (42.0-52.0); HEMOGLOBIN. 10.3 g/dL (14.0-18.0); LYMPHOCYTES % 23.4 % (20.0-50.0); MEAN CORPUSCULAR HEMOGLOBIN 18.8 pg (28.0-32.0); MEAN CORPUSCULAR VOLUME 62.9 fL (80.0-94.0); NEUTROPHILS % 62.2 % (40.0-76.0); PLATELET 109 x1000/uL (130-400); RED BLOOD CELL COUNT 5.47 mill/uL (4.7-6.1)
[2019-09-27 17:20] LABS: CHLORIDE 109 mEq/L (98-107)
[2019-09-27 18:07] LABS: PLATELET ESTIMATE DECREASED
[2019-09-28] VITALS (11 sets, daily range): BP systolic 107–179; BP diastolic 52–91
[2019-09-28] MEDS ORDERED: MORPHINE SULFATE 2 MG/ML CPJ (NOT FOR IM USE) IV PRN (06:00)
[2019-09-28] MEDS: HYDRALAZINE HCL 50MG TABLET PO SCH ×3 (06:00→22:00)
[2019-09-28] MEDS ORDERED: DEXTROSE 50% WATER 50ML SYRINGE IV PRN (06:00)
[2019-09-28] MEDS: BLOOD SUGAR DIAGNOSTIC STRIP TEST SCH ×4 (06:50→20:52)
[2019-09-28] MEDS: INSULIN LISPRO 100 UNITS/ML SUBCUT SCH ×4 (07:20→21:22)
[2019-09-28] MEDS ORDERED: FERROUS SULFATE 325MG TABLET PO SCH (07:20)
[2019-09-28] MEDS ORDERED: APIXABAN 5 MG TABLET PO SCH (09:00)
[2019-09-28] MEDS ORDERED: FUROSEMIDE 20MG TABLET PO SCH (09:00)
[2019-09-28] MEDS ORDERED: BROMFENAC SODIUM 0.09% OPHTH DROPS 2.5ML BOTHEYE SCH (09:00)
[2019-09-28] MEDS: DOCUSATE SODIUM 100MG CAPSULE PO SCH ×4 (09:00→18:33)
[2019-09-28] MEDS: FLUTICASONE PROPIONATE 50MCG/SPRAY BOTTLE BOTHNSTRLS SCH ×2 (09:00→20:51)
[2019-09-28 09:40] LABS: BASOPHILS % 0.5 % (0.0-2.0); EOSINOPHILS % 3.3 % (0.0-5.0); HEMOGLOBIN. 10.8 g/dL (14.0-18.0); LYMPHOCYTES % 28.4 % (20.0-50.0); MONOCYTES % 8.4 % (2.0-8.0); NEUTROPHILS % 59.4 % (40.0-76.0); RED BLOOD CELL COUNT 5.71 mill/uL (4.7-6.1); RED CELL DISTRIBUTION WIDTH 18.5 % (11.6-14.6)
[2019-09-28] MEDS: GABAPENTIN 300MG CAPSULE PO SCH ×3 (11:03→18:33)
[2019-09-28] MEDS: APIXABAN 5 MG TABLET PO SCH ×2 (11:03→18:33)
[2019-09-28] MEDS: AMIODARONE HCL 200 MG TABLET PO SCH (11:03)
[2019-09-28] MEDS: AMLODIPINE 5MG TABLET PO SCH ×2 (11:04→20:52)
[2019-09-28] MEDS: CARVEDILOL 6.25 MG TABLET PO SCH ×2 (11:04→20:52)
[2019-09-28] MEDS: INSULIN GLARGINE UD 100 UNITS/ML SYR SUBCUT SCH ×2 (11:05→22:51)
[2019-09-28 13:08] LABS: PLATELET 117 x1000/uL (130-400)
[2019-09-28] MEDS: LOSARTAN POTASSIUM 25 MG TABLET PO SCH (15:00)
[2019-09-28] MEDS: ATORVASTATIN CALCIUM 20MG TABLET PO SCH (20:51)
[2019-09-29] VITALS (12 sets, daily range): BP systolic 95–158; BP diastolic 41–80
[2019-09-29 06:56] LABS: BASOPHILS % 0.8 % (0.0-2.0); EOSINOPHILS % 3.6 % (0.0-5.0); HEMATOCRIT. 32.2 % (42.0-52.0); HEMOGLOBIN. 9.8 g/dL (14.0-18.0); LYMPHOCYTES % 27.8 % (20.0-50.0); MEAN CORPUSCULAR HEMOGLOBIN 18.9 pg (28.0-32.0); MEAN CORPUSCULAR VOLUME 62.1 fL (80.0-94.0); MEAN PLATELET VOLUME 9.1 fl (7.4-10.4); MONOCYTES % 8.2 % (2.0-8.0); NEUTROPHILS % 59.6 % (40.0-76.0); PLATELET 66 x1000/uL (130-400); RED BLOOD CELL COUNT 5.18 mill/uL (4.7-6.1); RED CELL DISTRIBUTION WIDTH 17.7 % (11.6-14.6)
[2019-09-29] MEDS: HYDRALAZINE HCL 50MG TABLET PO SCH ×3 (07:00→21:57)
[2019-09-29] MEDS: BLOOD SUGAR DIAGNOSTIC STRIP TEST SCH ×4 (07:00→20:27)
[2019-09-29] MEDS: INSULIN LISPRO 100 UNITS/ML SUBCUT SCH ×4 (07:20→20:37)
[2019-09-29 08:05] LABS: CHLORIDE 111 mEq/L (98-107)
[2019-09-29] MEDS: APIXABAN 5 MG TABLET PO SCH ×2 (09:00→09:07)
[2019-09-29] MEDS: LOSARTAN POTASSIUM 25 MG TABLET PO SCH (09:05)
[2019-09-29] MEDS: AMLODIPINE 5MG TABLET PO SCH ×2 (09:06→20:20)
[2019-09-29] MEDS: GABAPENTIN 300MG CAPSULE PO SCH ×3 (09:06→17:54)
[2019-09-29] MEDS: AMIODARONE HCL 200 MG TABLET PO SCH (09:06)
[2019-09-29] MEDS: CARVEDILOL 6.25 MG TABLET PO SCH ×2 (09:07→20:21)
[2019-09-29] MEDS: FLUTICASONE PROPIONATE 50MCG/SPRAY BOTTLE BOTHNSTRLS SCH ×2 (09:07→20:22)
[2019-09-29] MEDS: DOCUSATE SODIUM 100MG CAPSULE PO SCH ×3 (09:07→17:55)
[2019-09-29] MEDS: INSULIN GLARGINE UD 100 UNITS/ML SYR SUBCUT SCH ×2 (11:20→21:56)
[2019-09-29] MEDS: ATORVASTATIN CALCIUM 20MG TABLET PO SCH (20:21)
[2019-09-29 22:15] LABS: BASOPHILS % 0.7 % (0.0-2.0); EOSINOPHILS % 3.5 % (0.0-5.0); HEMATOCRIT. 31.6 % (42.0-52.0); HEMOGLOBIN. 9.5 g/dL (14.0-18.0); MEAN CORPUSCULAR HEMOGLOBIN 18.9 pg (28.0-32.0); MEAN CORPUSCULAR VOLUME 62.5 fL (80.0-94.0); MONOCYTES % 7.6 % (2.0-8.0); NEUTROPHILS % 63.2 % (40.0-76.0); RED BLOOD CELL COUNT 5.06 mill/uL (4.7-6.1); RED CELL DISTRIBUTION WIDTH 17.8 % (11.6-14.6)
[2019-09-29 22:57] LABS: MEAN PLATELET VOLUME 9.7 fl (7.4-10.4); PLATELET 97 x1000/uL (130-400); PLATELET ESTIMATE DECREASED
[2019-09-30] VITALS: BP 122/58
[2019-09-30 02:00] VITALS: BP 136/70
[2019-09-30 04:00] VITALS: BP 133/65
[2019-09-30] MEDS: HYDRALAZINE HCL 50MG TABLET PO SCH (05:15)
[2019-09-30 06:00] VITALS: BP 142/67
[2019-09-30] MEDS: BLOOD SUGAR DIAGNOSTIC STRIP TEST SCH (06:22)
[2019-09-30] MEDS: INSULIN LISPRO 100 UNITS/ML SUBCUT SCH (07:20)
[2019-09-30 08:00] VITALS: BP 126/47
[2019-09-30] MEDS: FLUTICASONE PROPIONATE 50MCG/SPRAY BOTTLE BOTHNSTRLS SCH (08:32)
[2019-09-30] MEDS: AMLODIPINE 5MG TABLET PO SCH (08:33)
[2019-09-30] MEDS: AMIODARONE HCL 200 MG TABLET PO SCH (08:33)
[2019-09-30] MEDS: LOSARTAN POTASSIUM 25 MG TABLET PO SCH (08:33)
[2019-09-30] MEDS: GABAPENTIN 300MG CAPSULE PO SCH (08:33)
[2019-09-30] MEDS: DOCUSATE SODIUM 100MG CAPSULE PO SCH (08:33)
[2019-09-30] MEDS: CARVEDILOL 6.25 MG TABLET PO SCH (08:34)
[2019-09-30] MEDS: APIXABAN 5 MG TABLET PO SCH (09:00)
[2019-09-30 11:38] VITALS: BP 129/69
== END 2019-09-30 13:00 | disposition home or self-care (01) | DRG 194 ==
LOC: ER 15:18 → 3WST 17:59 → EDBEDREQ 18:19 → EDBEDREQTM 18:19 → ENRESERV 09-28 02:45
PROVIDERS: ADMIT Internal Medicine; ATTEND Internal Medicine
PROC: 5A1D70Z Performance of Urinary Filtration, Intermittent, Less than 6 Hours Per Day (ICD-10-PCS; principal; 2019-09-29)
DX: I13.2 Hypertensive heart and chronic kidney disease with heart failure and with stage 5 chronic kidney disease, or end stage renal disease (principal); E43 Unspecified severe protein-calorie malnutrition; E11.22 Type 2 diabetes mellitus with diabetic chronic kidney disease; D69.6 Thrombocytopenia, unspecified; E87.8 Other disorders of electrolyte and fluid balance, not elsewhere classified; E11.40 Type 2 diabetes mellitus with diabetic neuropathy, unspecified; N18.6 End stage renal disease; I48.0 Paroxysmal atrial fibrillation; I25.5 Ischemic cardiomyopathy; I25.10 Atherosclerotic heart disease of native coronary artery without angina pectoris; E78.00 Pure hypercholesterolemia, unspecified; E78.5 Hyperlipidemia, unspecified; J98.11 Atelectasis; I50.43 Acute on chronic combined systolic (congestive) and diastolic (congestive) heart failure; D63.8 Anemia in other chronic diseases classified elsewhere; Z68.29 Body mass index [BMI] 29.0-29.9, adult; I25.2 Old myocardial infarction; Z86.73 Personal history of transient ischemic attack (TIA), and cerebral infarction without residual deficits; Z91.15 Patient's noncompliance with renal dialysis; Z95.5 Presence of coronary angioplasty implant and graft; Z99.2 Dependence on renal dialysis; Z91.81 History of falling
CPT/HCPCS: 36415; 71045; 80048; 80053; 80061; 82962; 83036; 84484; 85025; 93005; 99285; J1815

== ENCOUNTER 2019-10-22 16:06 | Inpatient (IN) | payer MEDICAID ==
[~2019-10-22] VITALS: Ht 177.8 cm; Wt 84.8 kg
[2019-10-22 17:17] LABS: BASOPHILS % 0.7 % (0.0-2.0); CHLORIDE 103 mEq/L (98-107); EOSINOPHILS % 2.6 % (0.0-5.0); HEMATOCRIT. 32.9 % (42.0-52.0); HEMOGLOBIN. 10.3 g/dL (14.0-18.0); LYMPHOCYTES % 24.3 % (20.0-50.0); MEAN CORPUSCULAR HEMOGLOBIN 19.4 pg (28.0-32.0); MEAN CORPUSCULAR VOLUME 62.3 fL (80.0-94.0); MEAN PLATELET VOLUME 9.1 fl (7.4-10.4); NEUTROPHILS % 66.4 % (40.0-76.0); PLATELET 62 x1000/uL (130-400); RED BLOOD CELL COUNT 5.28 mill/uL (4.7-6.1); RED CELL DISTRIBUTION WIDTH 16.5 % (11.6-14.6)
[2019-10-22 17:42] LABS: PLATELET ESTIMATE DECREASED
[2019-10-22 22:27] VITALS: BP 127/62
[2019-10-23] VITALS: BP 129/70
[2019-10-23] MEDS ORDERED: CLONIDINE 0.1MG TABLET PO PRN (00:30)
[2019-10-23] MEDS ORDERED: DEXTROSE 50% WATER 50ML SYRINGE IV PRN (00:30)
[2019-10-23 01:48] LABS: CREATINE KINASE 72 IU/L (39-308)
[2019-10-23 01:49] LABS: CREATINE KINASE MB FRACTION 3.3 ng/mL (0.5-3.6)
[2019-10-23 04:00] VITALS: BP 96/45
[2019-10-23] MEDS: BLOOD SUGAR DIAGNOSTIC STRIP TEST SCH ×4 (07:20→21:23)
[2019-10-23] MEDS: INSULIN LISPRO 100 UNITS/ML SUBCUT SCH ×4 (07:50→21:00)
[2019-10-23 08:09] VITALS: BP 112/58
[2019-10-23] MEDS ORDERED: FUROSEMIDE 40MG TABLET PO SCH (09:00)
[2019-10-23] MEDS ORDERED: MEDICATION NOT ON FORMULARY EA (Gabapentin 600 MG) PO SCH (09:00)
[2019-10-23] MEDS: GABAPENTIN 300MG CAPSULE PO SCH (09:44)
[2019-10-23] MEDS: HYDRALAZINE HCL 50MG TABLET PO SCH ×2 (09:44→21:00)
[2019-10-23] MEDS: FERROUS SULFATE 325MG TABLET PO SCH ×2 (09:45→17:32)
[2019-10-23] MEDS: DOCUSATE SODIUM 100MG CAPSULE PO SCH (09:47)
[2019-10-23 11:37] LABS: BASOPHILS % 1.1 % (0.0-2.0); EOSINOPHILS % 4.2 % (0.0-5.0); HEMATOCRIT. 31.2 % (42.0-52.0); HEMOGLOBIN. 9.5 g/dL (14.0-18.0); LYMPHOCYTES % 24.4 % (20.0-50.0); MEAN CORPUSCULAR HEMOGLOBIN 18.9 pg (28.0-32.0); MEAN CORPUSCULAR VOLUME 61.9 fL (80.0-94.0); MONOCYTES % 6.4 % (2.0-8.0); NEUTROPHILS % 63.9 % (40.0-76.0); RED BLOOD CELL COUNT 5.04 mill/uL (4.7-6.1); RED CELL DISTRIBUTION WIDTH 16.5 % (11.6-14.6)
[2019-10-23 12:07] VITALS: BP 128/64
[2019-10-23 12:21] LABS: CHLORIDE 107 mEq/L (98-107)
[2019-10-23 12:30] LABS: LDL CHOLESTEROL 52 mg/dL (5-100)
[2019-10-23 12:31] LABS: CREATINE KINASE 62 IU/L (39-308); HDL CHOLESTEROL 68 mg/dL (40-59)
[2019-10-23 12:36] LABS: CREATINE KINASE MB FRACTION 2.7 ng/mL (0.5-3.6)
[2019-10-23 13:40] LABS: MEAN PLATELET VOLUME 10.1 fl (7.4-10.4); PLATELET 74 x1000/uL (130-400)
[2019-10-23] MEDS ORDERED: ONDANSETRON HCL 4MG/2ML INJ IV PRN (13:45)
[2019-10-23 16:35] VITALS: BP 130/70
[2019-10-23 20:00] VITALS: BP 107/61
[2019-10-23] MEDS ORDERED: ATORVASTATIN CALCIUM 20MG TABLET PO SCH (21:00)
[2019-10-24] VITALS: BP 108/57
[2019-10-24 04:00] VITALS: BP 96/58
[2019-10-24] MEDS: BLOOD SUGAR DIAGNOSTIC STRIP TEST SCH ×3 (06:19→17:07)
[2019-10-24] MEDS: INSULIN LISPRO 100 UNITS/ML SUBCUT SCH ×3 (07:32→17:07)
[2019-10-24 08:00] VITALS: BP 104/54
[2019-10-24] MEDS: GABAPENTIN 300MG CAPSULE PO SCH (08:49)
[2019-10-24] MEDS: FERROUS SULFATE 325MG TABLET PO SCH ×2 (08:49→17:13)
[2019-10-24] MEDS: DOCUSATE SODIUM 100MG CAPSULE PO SCH (08:50)
[2019-10-24 12:00] VITALS: BP 120/63
[2019-10-24] MEDS: HYDRALAZINE HCL 50MG TABLET PO SCH (12:58)
[2019-10-24 16:17] VITALS: BP 124/64
[2019-10-24 16:20] VITALS: BP 124/64
== END 2019-10-24 17:30 | disposition home or self-care (01) | DRG 133 ==
LOC: ER 16:06 → 6WST 17:45 → EDBEDREQ 17:55 → ENRESERV 19:55
PROVIDERS: ADMIT Internal Medicine; ATTEND Internal Medicine
DX: J96.00 Acute respiratory failure, unspecified whether with hypoxia or hypercapnia (principal); I13.2 Hypertensive heart and chronic kidney disease with heart failure and with stage 5 chronic kidney disease, or end stage renal disease; D69.6 Thrombocytopenia, unspecified; E11.22 Type 2 diabetes mellitus with diabetic chronic kidney disease; E11.51 Type 2 diabetes mellitus with diabetic peripheral angiopathy without gangrene; N18.6 End stage renal disease; E11.649 Type 2 diabetes mellitus with hypoglycemia without coma; D50.9 Iron deficiency anemia, unspecified; I25.10 Atherosclerotic heart disease of native coronary artery without angina pectoris; I25.5 Ischemic cardiomyopathy; I48.0 Paroxysmal atrial fibrillation; I50.20 Unspecified systolic (congestive) heart failure; Z86.73 Personal history of transient ischemic attack (TIA), and cerebral infarction without residual deficits; I25.2 Old myocardial infarction; Z99.2 Dependence on renal dialysis
CPT/HCPCS: 36415; 71045; 80053; 80061; 82550; 82553; 82962; 83036; 83880; 84443; 84484; 85025; 93005; 99285; J1815; J2405

== ENCOUNTER 2019-12-27 12:13 | Emergency (ER) | payer MEDICAID ==
[~2019-12-27] VITALS: Ht 172.7 cm; Wt 72.0 kg
[~2019-12-27 12:13] MED LIST changes: -AMI2 PO; -AMLO5TAB88 PO; -APIX5TAB PO; -BROM3DRO BOTHEYE; -COR6 MT; -DOCU-138 MT; -FLUT1AER4 INH; -FLUT1BLS9 IH
[2019-12-27 13:47] LABS: HEMATOCRIT. 32.5 % (42.0-52.0); HEMOGLOBIN. 9.7 g/dL (14.0-18.0); MEAN CORPUSCULAR HEMOGLOBIN 18.9 pg (28.0-32.0); MEAN CORPUSCULAR VOLUME 63.4 fL (80.0-94.0); MEAN PLATELET VOLUME 9.9 fl (7.4-10.4); PLATELET 109 x1000/uL (130-400); RED BLOOD CELL COUNT 5.14 mill/uL (4.7-6.1); RED CELL DISTRIBUTION WIDTH 17.5 % (11.6-14.6)
[2019-12-27 13:52] LABS: CHLORIDE 114 mEq/L (98-107)
[2019-12-27 13:56] LABS: PROTHROMBIN TIME 10.2 sec (9.6-11.0)
[2019-12-27 14:09] LABS: PLATELET ESTIMATE DECREASED
[2019-12-27] MEDS ORDERED: SODIUM BICARBONATE 4% (2.4MEQ) 5ML VIAL IV ONE (15:07)
[2019-12-27] MEDS ORDERED: HEPARIN 1000 UNITS/ML 10ML ONE (15:07)
[2019-12-27] MEDS ORDERED: LIDOCAINE HCL 1% 20ML VIAL (Pyxis) INJ ONE (15:07)
[2019-12-27 16:32] VITALS: BP 184/87
== END 2019-12-27 16:40 | disposition home or self-care (01) ==
LOC: ER 12:50
DX: Z49.01 Encounter for fitting and adjustment of extracorporeal dialysis catheter (principal); I13.2 Hypertensive heart and chronic kidney disease with heart failure and with stage 5 chronic kidney disease, or end stage renal disease; E11.22 Type 2 diabetes mellitus with diabetic chronic kidney disease; N18.6 End stage renal disease; Z99.2 Dependence on renal dialysis; Z79.4 Long term (current) use of insulin
CPT/HCPCS: 36415; 71045; 76937; 77001; 80053; 85025; 85610; 93005; 99285; C1752; J1644; J3490; L8514

== ENCOUNTER 2020-01-21 13:35 | Inpatient (IN) | payer MEDICAID ==
[~2020-01-21] VITALS: Ht 188 cm; Wt 85.5 kg
[2020-01-21] MEDS ORDERED: SODIUM CHLORIDE 0.9% 1000ML BAG (SEPSIS BOLUS) IV ONE (14:30)
[2020-01-21] MEDS ORDERED: VANCOMYCIN 1 G PREMIX 200 ML IV ONE (14:30)
[2020-01-21] MEDS ORDERED: PIPERACILLIN/TAZ 3.375G PREMIX 50 ML IV ONE (14:30)
[2020-01-21 15:14] LABS: PROTHROMBIN TIME 10.4 sec (9.6-11.0)
[2020-01-21 15:18] LABS: CHLORIDE 114 mEq/L (98-107)
[2020-01-21 15:20] LABS: HEMATOCRIT. 31.3 % (42.0-52.0); HEMOGLOBIN. 9.2 g/dL (14.0-18.0); MEAN CORPUSCULAR HEMOGLOBIN 18.3 pg (28.0-32.0); MEAN CORPUSCULAR VOLUME 62.3 fL (80.0-94.0); MEAN PLATELET VOLUME 9.1 fl (7.4-10.4); PLATELET 200 x1000/uL (130-400); RED BLOOD CELL COUNT 5.03 mill/uL (4.7-6.1); RED CELL DISTRIBUTION WIDTH 17.7 % (11.6-14.6)
[2020-01-21 17:27] LABS: PLATELET ESTIMATE NORMAL
[2020-01-21 18:38] LABS: CLARITY URINE CLEAR (CLEAR); COLOR URINE YELLOW (YELLOW); KETONES URINE NEGATIVE (NEGATIVE); LEUKOCYTE ESTERASE URINE 2+ (NEGATIVE); NITRITE URINE NEGATIVE (NEGATIVE); OCCULT BLOOD URINE 2+ (NEGATIVE); PROTEIN URINE 3+ (NEGATIVE); SPECIFIC GRAVITY URINE 1.015 (1.005-1.030); UROBILINOGEN URINE 0.2 E.U./dL (0.2-1.0)
[2020-01-21 22:22] VITALS: BP 158/76
[2020-01-21 22:24] VITALS: BP 158/76
[2020-01-22] VITALS: BP 107/65
[2020-01-22] MEDS ORDERED: DEXTROSE 50% WATER 50ML SYRINGE IV PRN (00:45)
[2020-01-22 04:00] VITALS: BP 146/68
[2020-01-22] MEDS: HYDRALAZINE HCL 50MG TABLET PO SCH ×3 (05:15→21:59)
[2020-01-22 06:34] LABS: BASOPHILS % 0.7 % (0.0-2.0); EOSINOPHILS % 1.5 % (0.0-5.0); HEMATOCRIT. 26.8 % (42.0-52.0); HEMOGLOBIN. 7.9 g/dL (14.0-18.0); LYMPHOCYTES % 18.7 % (20.0-50.0); MEAN CORPUSCULAR HEMOGLOBIN 18.3 pg (28.0-32.0); MEAN CORPUSCULAR VOLUME 62.1 fL (80.0-94.0); MEAN PLATELET VOLUME 9.3 fl (7.4-10.4); MONOCYTES % 8.8 % (2.0-8.0); NEUTROPHILS % 70.3 % (40.0-76.0); PLATELET 141 x1000/uL (130-400); RED BLOOD CELL COUNT 4.32 mill/uL (4.7-6.1); RED CELL DISTRIBUTION WIDTH 17.7 % (11.6-14.6)
[2020-01-22] MEDS ORDERED: INSULIN LISPRO 100 UNITS/ML SUBCUT SCH (07:20)
[2020-01-22] MEDS: INSULIN LISPRO (LOW DOSE) 100 UNITS/ML SUBCUT SCH ×4 (07:50→21:00)
[2020-01-22 08:00] VITALS: BP 134/66
[2020-01-22] MEDS: FOLIC ACID/VITAMIN B COMP W-C TABLET PO SCH (08:42)
[2020-01-22] MEDS: AMLODIPINE 10MG TABLET PO SCH (08:42)
[2020-01-22] MEDS: SEVELAMER CARBONATE 800 MG TABLET PO SCH ×3 (08:42→17:50)
[2020-01-22 12:00] VITALS: BP 157/70
[2020-01-22] MEDS: BLOOD SUGAR DIAGNOSTIC STRIP TEST SCH ×3 (12:20→21:52)
[2020-01-22 16:00] VITALS: BP 130/68
[2020-01-22] MEDS ORDERED: ALTEPLASE 2MG/VIAL ITC NR ×2 (16:15→17:00)
[2020-01-22] MEDS ORDERED: VANCOMYCIN 750 MG PREMIX 150 ML IV SCH ×3 (18:00→20:00)
[2020-01-22 20:00] VITALS: BP 156/57
[2020-01-22] MEDS: ATORVASTATIN CALCIUM 20MG TABLET PO SCH (21:59)
[2020-01-22] MEDS: GABAPENTIN 300MG CAPSULE PO SCH (21:59)
[2020-01-23] VITALS: BP 131/97
[2020-01-23 04:00] VITALS: BP 123/67
[2020-01-23 05:47] LABS: BASOPHILS % 0.9 % (0.0-2.0); EOSINOPHILS % 2.5 % (0.0-5.0); HEMATOCRIT. 24.8 % (42.0-52.0); HEMOGLOBIN. 7.4 g/dL (14.0-18.0); LYMPHOCYTES % 29.7 % (20.0-50.0); MEAN CORPUSCULAR HEMOGLOBIN 18.3 pg (28.0-32.0); MEAN CORPUSCULAR VOLUME 61.1 fL (80.0-94.0); MEAN PLATELET VOLUME 9.3 fl (7.4-10.4); MONOCYTES % 7.6 % (2.0-8.0); NEUTROPHILS % 59.3 % (40.0-76.0); PLATELET 146 x1000/uL (130-400); RED BLOOD CELL COUNT 4.05 mill/uL (4.7-6.1); RED CELL DISTRIBUTION WIDTH 17.6 % (11.6-14.6)
[2020-01-23] MEDS: BLOOD SUGAR DIAGNOSTIC STRIP TEST SCH ×4 (06:13→21:42)
[2020-01-23] MEDS: HYDRALAZINE HCL 50MG TABLET PO SCH ×3 (06:16→21:42)
[2020-01-23] MEDS: INSULIN LISPRO (LOW DOSE) 100 UNITS/ML SUBCUT SCH ×4 (07:50→21:47)
[2020-01-23] MEDS: SEVELAMER CARBONATE 800 MG TABLET PO SCH ×3 (07:50→18:24)
[2020-01-23 08:00] VITALS: BP 164/60
[2020-01-23] MEDS: AMLODIPINE 10MG TABLET PO SCH (09:00)
[2020-01-23] MEDS: FOLIC ACID/VITAMIN B COMP W-C TABLET PO SCH (09:00)
[2020-01-23 12:00] VITALS: BP 175/82
[2020-01-23 12:22] LABS: PLATELET ESTIMATE NORMAL
[2020-01-23 16:00] VITALS: BP 157/77
[2020-01-23 20:00] VITALS: BP 145/60
[2020-01-23] MEDS: ATORVASTATIN CALCIUM 20MG TABLET PO SCH (21:41)
[2020-01-23] MEDS: GABAPENTIN 300MG CAPSULE PO SCH (21:41)
[2020-01-24] VITALS: BP 136/48
[2020-01-24 04:00] VITALS: BP 138/52
[2020-01-24] MEDS: HYDRALAZINE HCL 50MG TABLET PO SCH ×3 (05:52→21:23)
[2020-01-24] MEDS: BLOOD SUGAR DIAGNOSTIC STRIP TEST SCH ×4 (06:30→21:23)
[2020-01-24 07:30] LABS: BASOPHILS % 0.7 % (0.0-2.0); EOSINOPHILS % 3.5 % (0.0-5.0); HEMATOCRIT. 24.7 % (42.0-52.0); HEMOGLOBIN. 7.5 g/dL (14.0-18.0); LYMPHOCYTES % 23.1 % (20.0-50.0); MEAN CORPUSCULAR HEMOGLOBIN 18.6 pg (28.0-32.0); MEAN CORPUSCULAR VOLUME 61.1 fL (80.0-94.0); MEAN PLATELET VOLUME 8.9 fl (7.4-10.4); MONOCYTES % 9.9 % (2.0-8.0); NEUTROPHILS % 62.8 % (40.0-76.0); PLATELET 132 x1000/uL (130-400); RED BLOOD CELL COUNT 4.04 mill/uL (4.7-6.1); RED CELL DISTRIBUTION WIDTH 17.2 % (11.6-14.6)
[2020-01-24] MEDS: INSULIN LISPRO (LOW DOSE) 100 UNITS/ML SUBCUT SCH ×4 (07:44→21:29)
[2020-01-24 08:00] VITALS: BP 120/76
[2020-01-24] MEDS: AMLODIPINE 10MG TABLET PO SCH (08:45)
[2020-01-24] MEDS: FOLIC ACID/VITAMIN B COMP W-C TABLET PO SCH (08:45)
[2020-01-24] MEDS: SEVELAMER CARBONATE 800 MG TABLET PO SCH ×3 (08:45→17:41)
[2020-01-24 12:00] VITALS: BP 140/64
[2020-01-24] MEDS ORDERED: VANCOMYCIN 1 G PREMIX 200 ML IV SCH (12:00)
[2020-01-24 16:00] VITALS: BP 144/52
[2020-01-24 20:00] VITALS: BP 160/56
[2020-01-24] MEDS: ATORVASTATIN CALCIUM 20MG TABLET PO SCH (21:23)
[2020-01-24] MEDS: GABAPENTIN 300MG CAPSULE PO SCH (21:23)
[2020-01-25] VITALS (11 sets, daily range): BP systolic 109–166; BP diastolic 52–77
[2020-01-25] MEDS: HYDRALAZINE HCL 50MG TABLET PO SCH ×2 (05:46→12:51)
[2020-01-25] MEDS: INSULIN LISPRO (LOW DOSE) 100 UNITS/ML SUBCUT SCH ×3 (07:50→17:50)
[2020-01-25 07:55] LABS: BASOPHILS % 0.6 % (0.0-2.0); EOSINOPHILS % 3.8 % (0.0-5.0); HEMATOCRIT. 25.4 % (42.0-52.0); HEMOGLOBIN. 7.6 g/dL (14.0-18.0); LYMPHOCYTES % 20.2 % (20.0-50.0); MEAN CORPUSCULAR HEMOGLOBIN 18.3 pg (28.0-32.0); MEAN PLATELET VOLUME 9.3 fl (7.4-10.4); MONOCYTES % 8.9 % (2.0-8.0); NEUTROPHILS % 66.5 % (40.0-76.0); PLATELET 132 x1000/uL (130-400); RED BLOOD CELL COUNT 4.17 mill/uL (4.7-6.1)
[2020-01-25] MEDS: AMLODIPINE 10MG TABLET PO SCH (08:25)
[2020-01-25] MEDS: FOLIC ACID/VITAMIN B COMP W-C TABLET PO SCH (08:25)
[2020-01-25] MEDS: SEVELAMER CARBONATE 800 MG TABLET PO SCH ×3 (08:25→17:50)
[2020-01-25] MEDS: BLOOD SUGAR DIAGNOSTIC STRIP TEST SCH ×3 (08:43→17:20)
[2020-01-25] MEDS ORDERED: LIDOCAINE HCL 1% 20ML VIAL (Pyxis) INJ ONE (08:55)
[2020-01-25] MEDS ORDERED: SODIUM BICARBONATE 4% (2.4MEQ) 5ML VIAL IV ONE (08:55)
[2020-01-25] MEDS ORDERED: FENTANYL CITRATE/PF 50MCG/ML 2ML VIAL ONE (09:31)
[2020-01-25] MEDS ORDERED: FENTANYL CITRATE/PF 50MCG/ML 2ML VIAL IV NR (09:31)
[2020-01-25] MEDS ORDERED: CARVEDILOL 6.25 MG TABLET PO NR (15:45)
[2020-01-25] MEDS ORDERED: CARVEDILOL 6.25 MG TABLET PO SCH (22:00)
== END 2020-01-25 18:29 | disposition left against medical advice (07) | DRG 194 ==
LOC: ER 13:35 → EDBEDREQTM 14:32 → EDBEDREQ 17:53 → EDBEDREQSVC 17:53 → EDBEDREQTM 17:53 → 6WST 19:15 → EDBEDREQSVC 19:29 → EDBEDREQTM 19:29 → EDBEDREQ 19:29 → ENRESERV 19:54
PROVIDERS: ADMIT Internal Medicine; ATTEND Internal Medicine
PROC: 5A1D70Z Performance of Urinary Filtration, Intermittent, Less than 6 Hours Per Day (ICD-10-PCS; 2020-01-22)
PROC: 5A1D70Z Performance of Urinary Filtration, Intermittent, Less than 6 Hours Per Day (ICD-10-PCS; 2020-01-24)
PROC: 0JH63XZ Insertion of Tunneled Vascular Access Device into Chest Subcutaneous Tissue and Fascia, Percutaneous Approach (ICD-10-PCS; principal; 2020-01-25)
PROC: 02HV33Z Insertion of Infusion Device into Superior Vena Cava, Percutaneous Approach (ICD-10-PCS; 2020-01-25)
PROC: B5181ZA Fluoroscopy of Superior Vena Cava using Low Osmolar Contrast, Guidance (ICD-10-PCS; 2020-01-25)
PROC: B548ZZA Ultrasonography of Superior Vena Cava, Guidance (ICD-10-PCS; 2020-01-25)
DX: I13.2 Hypertensive heart and chronic kidney disease with heart failure and with stage 5 chronic kidney disease, or end stage renal disease (principal); G93.41 Metabolic encephalopathy; N18.6 End stage renal disease; E11.22 Type 2 diabetes mellitus with diabetic chronic kidney disease; D63.8 Anemia in other chronic diseases classified elsewhere; E11.649 Type 2 diabetes mellitus with hypoglycemia without coma; I50.23 Acute on chronic systolic (congestive) heart failure; I42.9 Cardiomyopathy, unspecified; E87.5 Hyperkalemia; E44.1 Mild protein-calorie malnutrition; E87.8 Other disorders of electrolyte and fluid balance, not elsewhere classified; I25.10 Atherosclerotic heart disease of native coronary artery without angina pectoris; E78.5 Hyperlipidemia, unspecified; I25.5 Ischemic cardiomyopathy; I48.0 Paroxysmal atrial fibrillation; Z99.2 Dependence on renal dialysis; Z79.4 Long term (current) use of insulin; I25.2 Old myocardial infarction; Z82.49 Family history of ischemic heart disease and other diseases of the circulatory system; Z86.73 Personal history of transient ischemic attack (TIA), and cerebral infarction without residual deficits; Z95.5 Presence of coronary angioplasty implant and graft; Z79.899 Other long term (current) drug therapy; Z68.24 Body mass index [BMI] 24.0-24.9, adult
CPT/HCPCS: 36415; 36558; 71045; 76937; 77001; 80048; 80053; 80061; 80202; 81003; 82962; 83036; 83605; 84100; 84132; 84145; 84484; 85025; 87070; 87077; 87186; 93005; 99285; C1750; C1769; J1642; J1815; J2543; J2997; J3010; J3370; J3490; J7030